=== PATIENT | female | born 1950 | race Caucasian/White ===

== ENCOUNTER 2017-08-03 15:36 | Emergency (ER) | payer MEDICARE, OTHER ==
[~2017-08-03] VITALS: Ht 170.2 cm; Wt 60.0 kg
[~2017-08-03 15:36] MED LIST: GABA100C4 PO; HYDR10TA16 PO; MELO15 PO; SERO400T3 PO; SUMA50 PO; VORT5TAB PO
[2017-08-03 15:59] VITALS: BP 150/90; PULSE 120; RESP 16; TEMP 98.6; O2SAT 95
[2017-08-03 16:36] LABS: AUTOMATED NEUTROPHIL # 7.2 TH/MM3 (1.8-7.7); BASOPHIL # 0.1 TH/MM3 (0-0.2); BASOPHIL % 0.4 % (0.0-2.0); EOSINOPHIL # 0.1 TH/MM3 (0-0.4); EOSINOPHIL % 0.8 % (0.0-4.0); HEMATOCRIT 45.7 % (35.0-46.0); HEMOGLOBIN 15.3 GM/DL (11.6-15.3); LYMPH % 40.7 % (9.0-44.0); LYMPHOCYTE # 5.7 TH/MM3 (1.0-4.8); MEAN CELL VOLUME 91.9 FL (80.0-100.0); MEAN CORPUSCULAR HEMOGLOBIN 30.7 PG (27.0-34.0); MEAN CORPUSCULAR HGB CONC 33.5 % (32.0-36.0); MEAN PLATELET VOLUME 7.7 FL (7.0-11.0); MONO % 6.3 % (0.0-8.0); MONOCYTE # 0.9 TH/MM3 (0-0.9); NEUT % 51.8 % (16.0-70.0); PLATELET COUNT 543 TH/MM3 (150-450); RED BLOOD COUNT 4.97 MIL/MM3 (4.00-5.30); RED CELL DISTRIBUTION WIDTH 14.5 % (11.6-17.2); WHITE BLOOD COUNT 13.9 TH/MM3 (4.0-11.0)
--- NOTE | 2017-08-03 16:46 | PD ---
HPI Chief Complaint: Psychiatric Symptoms Time Seen by Provider: 16:04 Travel History International Travel<30 days: No Contact w/Intl Traveler<30days: No Traveled to known affect area: No History of Present Illness HPI The patient is a 66-year-old female who presents to the emergency department as a Harding act. According to police affidavit a family member called in to state that the patient made comments in regards to suicide. The patient apparently made statements that she no longer wanted to live and was saying goodbye. The [place] patrol police met the patient had continued to cry and appeared intoxicated. She told the [place] patrol police that "no one cares "about her and wanted to be alone. They do note the patient became combative and resistant, according to police affidavit the patient appeared to be need assistance. The patient does have a history of depression with previous suicide attempt, however, will not elaborate in regards to the previous suicide attempt. She denies any suicidal ideation, states she was involved in an argument with her daughter and grandson because of her debit card being used, she states "all that I am to them is in [place] ". She does admit to drinking alcohol today. She denies a suicidal plan. She states she is no longer able to drive and has chronic laryngitis. PFSH Past Medical History Alzheimer's Disease: Yes Arthritis: Yes Asthma: No Depression: Yes Heart Rhythm Problems: No Cancer: Yes (non-Hodgkins lymphoma) Cardiovascular Problems: Yes High Cholesterol: No Chest Pain: No Congestive Heart Failure: No COPD: No Diminished Hearing: No Endocrine: No Fibromyalgia: Yes Gastrointestinal Disorders: Yes GERD: Yes Genitourinary: No Headaches: Yes Herniated Disk: Yes (x 2 neck & x 2 back) Hypertension: Yes (denies) Immune Disorder: Yes (Fibromyalgia) Implanted Vascular Access Dvce: Yes Musculoskeletal: Yes Neurologic: Yes Psychiatric: Yes Reproductive: No Respiratory: Yes Migraines: Yes Radiation Therapy: No Sleep Apnea: No Ulcer: Yes (hx) Tetanus Vaccination: Unknown Influenza Vaccination: No Tubal Ligation: Yes Past Surgical History Abdominal Surgery: No Appendectomy: Yes Body Medical Devices: breast implants Cardiac Surgery: No Ear Surgery: No Endocrine Surgery: No Eye Surgery: No Genitourinary Surgery: No Gynecologic Surgery: Yes (tubal ligation.) Oral Surgery: No Thoracic Surgery: Yes (rt. breast bx, breast augmentation.) Other Surgery: Yes (breast augmentation, COLONOSCOPY, RIGHT HIP) Social History Alcohol Use: Yes (OFTEN) Tobacco Use: Yes (1/4 PPD) Substance Use: Yes Allergies-Medications (Allergen,Severity, Reaction): Coded Allergies: No Known Allergies (Verified , 08/04/14) Reported Meds & Prescriptions Reported Meds & Active Scripts Active Reported Wellbutrin Xl 24 HR (Bupropion HCl) 150 Mg Tab 150 Mg PO DAILY Lisinopril 2.5 Mg Tab 2.5 Mg PO DAILY Review of Systems ROS Limitations: Intoxication Except as stated in HPI: all other systems reviewed are Neg General / Constitutional: No: Fever Cardiovascular: No: Chest Pain or Discomfort Respiratory: No: Shortness of Breath Gastrointestinal: No: Nausea, Vomiting Psychiatric: Positive: Depression, Substance Abuse (alcohol use), No: Suicidal Ideations, Homicidal Ideation Physical Exam Narrative GENERAL: Awake, alert, 66-year-old female who initially does not want to answer questions. SKIN: Focused skin assessment warm/dry. HEAD: Atraumatic. Normocephalic. EYES: Pupils equal and round. Mild injection bilaterally. ENT: No nasal bleeding or discharge. Breath smells of alcohol. NECK: Trachea midline. No JVD. CARDIOVASCULAR: Regular rate and rhythm. No murmur appreciated. RESPIRATORY: No accessory muscle use. Clear to auscultation. Breath sounds equal bilaterally. MUSCULOSKELETAL: No obvious deformities. No clubbing. No cyanosis. No edema. NEUROLOGICAL: Awake and alert. No obvious cranial nerve deficits. Motor grossly within normal limits. Normal speech. Nonfocal. PSYCHIATRIC: Tearful, demanding of staff's attention. Data Data Last Documented VS Vital Signs Date Time Temp Pulse Resp B/P (MAP) Pulse Ox O2 Delivery O2 Flow Rate FiO2 08/04/17 06:31 98.2 97 18 180/106 (130) 98 Room Air Orders Orders Complete Blood Count With Diff (08/03/17 15:58) Comprehensive Metabolic Panel (08/03/17 15:58) Thyroid Stimulating Hormone (08/03/17 15:58) Psych Screen (08/03/17 15:58) Drug Screen, Random Urine (08/03/17 15:58) Alcohol (Ethanol) (08/03/17 15:58) Diet Regular Basic (08/04/17 Breakfast) Lisinopril (Prinivil) (08/04/17 06:30) Labs Laboratory Tests Test 08/03/17 15:47 08/03/17 15:55 Urine Opiates Screen NEG Urine Barbiturates Screen NEG Urine Amphetamines Screen NEG Urine Benzodiazepines Screen NEG Urine Cocaine Screen NEG Urine Cannabinoids Screen POS White Blood Count 13.9 TH/MM3 Red Blood Count 4.97 MIL/MM3 Hemoglobin 15.3 GM/DL Hematocrit 45.7 % Mean Corpuscular Volume 91.9 FL Mean Corpuscular Hemoglobin 30.7 PG Mean Corpuscular Hemoglobin Concent 33.5 % Red Cell Distribution Width 14.5 % Platelet Count 543 TH/MM3 Mean Platelet Volume 7.7 FL Neutrophils (%) (Auto) 51.8 % Lymphocytes (%) (Auto) 40.7 % Monocytes (%) (Auto) 6.3 % Eosinophils (%) (Auto) 0.8 % Basophils (%) (Auto) 0.4 % Neutrophils # (Auto) 7.2 TH/MM3 Lymphocytes # (Auto) 5.7 TH/MM3 Monocytes # (Auto) 0.9 TH/MM3 Eosinophils # (Auto) 0.1 TH/MM3 Basophils # (Auto) 0.1 TH/MM3 CBC Comment AUTO DIFF Differential Comment AUTO DIFF CONFIRMED Blood Urea Nitrogen 11 MG/DL Creatinine 0.93 MG/DL Random Glucose 134 MG/DL Total Protein 7.8 GM/DL Albumin 3.7 GM/DL Calcium Level 9.5 MG/DL Alkaline Phosphatase 109 U/L Aspartate Amino Transf (AST/SGOT) 7 U/L Alanine Aminotransferase (ALT/SGPT) 8 U/L Total Bilirubin 0.2 MG/DL Sodium Level 145 MEQ/L Potassium Level 3.6 MEQ/L Chloride Level 110 MEQ/L Carbon Dioxide Level 20.0 MEQ/L Anion Gap 15 MEQ/L Estimat Glomerular Filtration Rate 60 ML/MIN Thyroid Stimulating Hormone 3rd Gen 1.030 uIU/ML Ethyl Alcohol Level 61 MG/DL [facility] Medical Decision Making Medical Screen Exam Complete: Yes Emergency Medical Condition: Yes Medical Record Reviewed: Yes Differential Diagnosis Differential diagnosis includes suicidal ideation, depressive disorder, bipolar affective disorder, substance induced mood disorder, stress reaction, adjustment reaction, schizoaffective disorder. Narrative Course Labs are drawn and sent. Psychiatric evaluation was ordered. The patient was signed out to the oncoming physician at 5 PM and laboratory evaluation pending. Diagnosis Primary Impression: Substance induced mood disorder Condition: Stable Crump,[place] Z. MD Aug 03, 2017 16:46
[2017-08-03 16:52] LABS: ALBUMIN 3.7 GM/DL (3.4-5.0); ALT (GPT) 8 U/L (10-53); AST (GOT) 7 U/L (15-37); BLOOD UREA NITROGEN 11 MG/DL (7-18); CALCIUM 9.5 MG/DL (8.5-10.1); CHLORIDE 110 MEQ/L (98-107); CREATININE 0.93 MG/DL (0.50-1.00); GLOMERULAR FILTRATION RATE 60 ML/MIN (>89); GLUCOSE,RANDOM 134 MG/DL (74-106); SODIUM (NA) 145 MEQ/L (136-145)
[2017-08-03 17:02] LABS: ALKALINE PHOSPHATASE 109 U/L (45-117); TOTAL BILIRUBIN ADULT 0.2 MG/DL (0.2-1.0); TOTAL PROTEIN 7.8 GM/DL (6.4-8.2)
--- NOTE | 2017-08-03 19:33 | PD ---
Physical Exam Narrative Patient was seen by ED physician and signed out to me. Data Data Last Documented VS Vital Signs Date Time Temp Pulse Resp B/P (MAP) Pulse Ox O2 Delivery O2 Flow Rate FiO2 08/03/17 15:59 98.6 120 16 150/90 (110) 95 Orders Orders Complete Blood Count With Diff (08/03/17 15:58) Comprehensive Metabolic Panel (08/03/17 15:58) Thyroid Stimulating Hormone (08/03/17 15:58) Psych Screen (08/03/17 15:58) Drug Screen, Random Urine (08/03/17 15:58) Alcohol (Ethanol) (08/03/17 15:58) Labs Laboratory Tests Test 08/03/17 15:47 08/03/17 15:55 Urine Opiates Screen NEG Urine Barbiturates Screen NEG Urine Amphetamines Screen NEG Urine Benzodiazepines Screen NEG Urine Cocaine Screen NEG Urine Cannabinoids Screen POS White Blood Count 13.9 TH/MM3 Red Blood Count 4.97 MIL/MM3 Hemoglobin 15.3 GM/DL Hematocrit 45.7 % Mean Corpuscular Volume 91.9 FL Mean Corpuscular Hemoglobin 30.7 PG Mean Corpuscular Hemoglobin Concent 33.5 % Red Cell Distribution Width 14.5 % Platelet Count 543 TH/MM3 Mean Platelet Volume 7.7 FL Neutrophils (%) (Auto) 51.8 % Lymphocytes (%) (Auto) 40.7 % Monocytes (%) (Auto) 6.3 % Eosinophils (%) (Auto) 0.8 % Basophils (%) (Auto) 0.4 % Neutrophils # (Auto) 7.2 TH/MM3 Lymphocytes # (Auto) 5.7 TH/MM3 Monocytes # (Auto) 0.9 TH/MM3 Eosinophils # (Auto) 0.1 TH/MM3 Basophils # (Auto) 0.1 TH/MM3 CBC Comment AUTO DIFF Differential Comment AUTO DIFF CONFIRMED Blood Urea Nitrogen 11 MG/DL Creatinine 0.93 MG/DL Random Glucose 134 MG/DL Total Protein 7.8 GM/DL Albumin 3.7 GM/DL Calcium Level 9.5 MG/DL Alkaline Phosphatase 109 U/L Aspartate Amino Transf (AST/SGOT) 7 U/L Alanine Aminotransferase (ALT/SGPT) 8 U/L Total Bilirubin 0.2 MG/DL Sodium Level 145 MEQ/L Potassium Level 3.6 MEQ/L Chloride Level 110 MEQ/L Carbon Dioxide Level 20.0 MEQ/L Anion Gap 15 MEQ/L Estimat Glomerular Filtration Rate 60 ML/MIN Thyroid Stimulating Hormone 3rd Gen 1.030 uIU/ML Ethyl Alcohol Level 61 MG/DL MDM Supervised Visit with GLADYS: No Interpretation(s) CBC WBC 13.9. Platelet 543. Normal differential. Bicarb 20.0. GFR 60. Alcohol 61. Urine drug screen positive for cannabis. Narrative Course 1933 PM. Patient is medically cleared for psychiatric evaluation and disposition. Diagnosis Primary Impression: Substance induced mood disorder Condition: Stable Chaim Elizabeth MD Aug 03, 2017 19:33
[2017-08-03] MEDS ORDERED: BUPR150XL PO (19:40)
[2017-08-03] MEDS ORDERED: LISI2.5T3 PO (19:40)
[2017-08-03 22:24] VITALS: BP 176/86; PULSE 94; RESP 22; TEMP 98.8; O2SAT 97
[2017-08-04 02:13] VITALS: BP 191/93; PULSE 81; RESP 18; TEMP 98.2; O2SAT 99
[2017-08-04] MEDS ORDERED: LISINOPRIL 10 MG TAB PO ONE (06:30)
[2017-08-04 06:31] VITALS: BP 180/106; PULSE 97; RESP 18; TEMP 98.2; O2SAT 98
[2017-08-04 10:00] VITALS: BP 138/100; PULSE 86; RESP 20
[2017-08-04 10:50] VITALS: BP 171/94; PULSE 101; RESP 20; O2SAT 98
--- NOTE | 2017-08-04 11:24 | PD ---
Physical Exam Date Seen by Provider: Aug 04, 2017 Time Seen by Provider: 11:22 Narrative 66-year-old female previously medically cleared for psychiatric evaluation has been seen and evaluated by psychiatric staff. Patient is deemed currently psychiatrically stable for discharge at this time. Patient remains medically stable at this time. Follow-up is based on psychiatric note. Patient should continue her blood pressure medications as previously prescribed. Data Data Last Documented VS Vital Signs Date Time Temp Pulse Resp B/P (MAP) Pulse Ox O2 Delivery O2 Flow Rate FiO2 08/04/17 10:50 101 20 171/94 (119) 98 Room Air 08/04/17 06:31 98.2 Orders Orders Complete Blood Count With Diff (08/03/17 15:58) Comprehensive Metabolic Panel (08/03/17 15:58) Thyroid Stimulating Hormone (08/03/17 15:58) Psych Screen (08/03/17 15:58) Drug Screen, Random Urine (08/03/17 15:58) Alcohol (Ethanol) (08/03/17 15:58) Diet Regular Basic (08/04/17 Breakfast) Lisinopril (Prinivil) (08/04/17 06:30) Diet Regular Basic (08/04/17 Lunch) Labs Laboratory Tests Test 08/03/17 15:47 08/03/17 15:55 Urine Opiates Screen NEG Urine Barbiturates Screen NEG Urine Amphetamines Screen NEG Urine Benzodiazepines Screen NEG Urine Cocaine Screen NEG Urine Cannabinoids Screen POS White Blood Count 13.9 TH/MM3 Red Blood Count 4.97 MIL/MM3 Hemoglobin 15.3 GM/DL Hematocrit 45.7 % Mean Corpuscular Volume 91.9 FL Mean Corpuscular Hemoglobin 30.7 PG Mean Corpuscular Hemoglobin Concent 33.5 % Red Cell Distribution Width 14.5 % Platelet Count 543 TH/MM3 Mean Platelet Volume 7.7 FL Neutrophils (%) (Auto) 51.8 % Lymphocytes (%) (Auto) 40.7 % Monocytes (%) (Auto) 6.3 % Eosinophils (%) (Auto) 0.8 % Basophils (%) (Auto) 0.4 % Neutrophils # (Auto) 7.2 TH/MM3 Lymphocytes # (Auto) 5.7 TH/MM3 Monocytes # (Auto) 0.9 TH/MM3 Eosinophils # (Auto) 0.1 TH/MM3 Basophils # (Auto) 0.1 TH/MM3 CBC Comment AUTO DIFF Differential Comment AUTO DIFF CONFIRMED Blood Urea Nitrogen 11 MG/DL Creatinine 0.93 MG/DL Random Glucose 134 MG/DL Total Protein 7.8 GM/DL Albumin 3.7 GM/DL Calcium Level 9.5 MG/DL Alkaline Phosphatase 109 U/L Aspartate Amino Transf (AST/SGOT) 7 U/L Alanine Aminotransferase (ALT/SGPT) 8 U/L Total Bilirubin 0.2 MG/DL Sodium Level 145 MEQ/L Potassium Level 3.6 MEQ/L Chloride Level 110 MEQ/L Carbon Dioxide Level 20.0 MEQ/L Anion Gap 15 MEQ/L Estimat Glomerular Filtration Rate 60 ML/MIN Thyroid Stimulating Hormone 3rd Gen 1.030 uIU/ML Ethyl Alcohol Level 61 MG/DL [facility] Medical Record Reviewed: Yes Supervised Visit with GLADYS: Yes Narrative Course 66-year-old female previously medically cleared for psychiatric evaluation has been seen and evaluated by psychiatric staff. Patient is deemed currently psychiatrically stable for discharge at this time. Patient remains medically stable at this time. Follow-up is based on psychiatric note. Patient should continue her blood pressure medications as previously prescribed. Diagnosis Primary Impression: Substance induced mood disorder Patient Instructions: General Instructions Med/Other Pt SpecificInfo: No Change to Meds Disposition: 01 DISCHARGE HOME Condition: Stable Chucky Billy Aug 04, 2017 11:24
--- NOTE | 2017-08-04 11:33 | PD ---
History of Present Illness Chief Complaint: Psychiatric Symptoms Time Seen by Provider: 11:20 Travel History International Travel<30 Days: No Contact w/Intl Traveler<30days: No Known affected area: No Legal Status Legal Status: Harding Act Harding Act Signed By: Naheed Khan History of Present Illness: History of Present Illness HPI The patient is a 66-year-old, female with reported history of depression who presents to the emergency department as a Harding act initiated by law enforcement. According to police affidavit a family member called in to state that the patient made comments in regards to suicide. The patient apparently made statements that she no longer wanted to live and was saying goodbye. When the aboriginal liaison officer met the patient she continued to cry and appeared intoxicated. She told the aboriginal liaison officer that "no one cares "about her and wanted to be alone. They do note the patient became combative and resistant, according to police affidavit the patient appeared to be need assistance. The patient was monitored in secure environment and presented no behavioral concerns and no suicidality. EMR reviewed. One previous admission to [facility] psychiatry in 2015 for treatment of depression and suicide attempt. Current toxicology is positive for cannabinoids. Blood alcohol level on admission is 61. Patient is seen in J pod. She is alert, oriented female in hospital [facility] with fair hygiene and grooming. She is histrionic. Speech is clear and logical. She is focused on somatic complaints regarding back pain and leg pain and elbow pain. There is no evidence of any psychosis, no rufus or hypomania. She denies any hallucinations and does not appear internally preoccupied. She admits to feeling depressed but states that she felt like that for most of her life. She denies any suicidal or homicidal ideation, intent or plan. She goes on to say that she is not sure why she was brought here. Does admit that her brother called the police for a wellness check but she denies that she ever said anything about killing herself. She does admit to saying "something to the effect of being tired of living the way I am living". She continues to deny that that was a suicidal statement. Patient does share that she is experiencing multiple family stressors including recent knowledge that one of her grandsons used her debit card and that her granddaughter doesn't want her to see her great grandchildren. Patient denies that she is a daily drinker although does admit she had a few drinks prior to being placed under the Harding act. Remainder of psychiatric review of systems is negative. PFSH Past Medical History Alzheimer's Disease: Yes Arthritis: Yes Asthma: No Depression: Yes Heart Rhythm Problems: No Cancer: Yes (non-Hodgkins lymphoma) Cardiovascular Problems: Yes High Cholesterol: No Chest Pain: No Congestive Heart Failure: No COPD: No Diminished Hearing: No Endocrine: No Fibromyalgia: Yes Gastrointestinal Disorders: Yes GERD: Yes Genitourinary: No Headaches: Yes Herniated Disk: Yes (x 2 neck & x 2 back) Hypertension: Yes (denies) Immune Disorder: Yes (Fibromyalgia) Implanted Vascular Access Dvce: Yes Musculoskeletal: Yes Neurologic: Yes Psychiatric: Yes Reproductive: No Respiratory: Yes Migraines: Yes Radiation Therapy: No Sleep Apnea: No Ulcer: Yes (hx) Tetanus Vaccination: Unknown Influenza Vaccination: No Tubal Ligation: Yes Past Surgical History Abdominal Surgery: No Appendectomy: Yes Body Medical Devices: breast implants Cardiac Surgery: No Ear Surgery: No Endocrine Surgery: No Eye Surgery: No Genitourinary Surgery: No Gynecologic Surgery: Yes (tubal ligation.) Oral Surgery: No Thoracic Surgery: Yes (rt. breast bx, breast augmentation.) Other Surgery: Yes (breast augmentation, COLONOSCOPY, RIGHT HIP) Psychiatric History Psychiatric History Hx Psychiatric Treatment: HX: MAJOR DEPRESSION PATIENT WAS ADMITTED TO [facility] ON JULY OF 2014 FOR SUICIDE ATTEMPT. Followed outpatient by [facility] in the past. Currently not taking any psychiatric medications. One previous suicide attempt in 2014 History of Inpatient Treatment: Yes Guns or firearms in home: No Social History female. Lives by herself. Unemployed. Hx Alcohol Use: Yes (OFTEN) Hx Tobacco Use: Yes (1/4 PPD) Hx Substance Use: Yes Substance Use Type: Alcohol, Marijuana Hx of Substance Use Treatment: No Family Psychiatric History Negative Allergies-Medications (Allergen,Severity, Reaction): Coded Allergies: No Known Allergies (Verified , 08/04/14) Reported Meds & Prescriptions Reported Meds & Active Scripts Active Reported Wellbutrin Xl 24 HR (Bupropion HCl) 150 Mg Tab 150 Mg PO DAILY Lisinopril 2.5 Mg Tab 2.5 Mg PO DAILY Review of Systems Musculoskeletal: COMPLAINS OF: Joint pain, Muscle aches, Back pain Psychiatric: COMPLAINS OF: Depression Except as stated in HPI: all other systems reviewed are Neg Mental Status Examination Appearance: Appropriate (in hospital attire) Consciousness: Alert Orientation: x4 Motor Activity: Normal gait Speech: Unremarkable Language: Adequate Fund of Knowledge: Adequate Attention and Concentration: Adequate Memory: Unremarkable Mood: Angry Affect: Appropriate Thought Process & Associations: Intact, Logical, Goal directed Thought Content: Other (somatically focused) Hallucination Type: None Delusion Type: None Suicidal Ideation: No Suicidal Plan: No Suicidal Intention: No Homicidal Ideation: No Homicidal Plan: No Homicidal Intention: No Insight: Fair Judgment: Impulsive MDM Medical Decision Making Medical Record Reviewed: Yes Assessment/Plan 66-year-old female with past history of depression who while in context of an argument with family members and while under the influence of alcohol made statements alluding to having suicidal feelings. The patient did not make any attempt at harming herself. The patient was monitored in secure environment and presented no suicidality. She does report that she has multiple family stressors as well as having persistent pain. She is denying any suicidal ideation, intent or plan. She is future oriented and wants to be discharge in order to go home and take care of her cat. The patient at this time is not under psychiatric care and does not want to pursue that since she states that previous treatment was not effective. At this time the patient does not meet criteria for Harding act. She is provided psychoeducation. The Harding act is lifted. Psychiatrically clear for discharge from ED Orders Orders Complete Blood Count With Diff (08/03/17 15:58) Comprehensive Metabolic Panel (08/03/17 15:58) Thyroid Stimulating Hormone (08/03/17 15:58) Psych Screen (08/03/17 15:58) Drug Screen, Random Urine (08/03/17 15:58) Alcohol (Ethanol) (08/03/17 15:58) Diet Regular Basic (08/04/17 Breakfast) Lisinopril (Prinivil) (08/04/17 06:30) Diet Regular Basic (08/04/17 Lunch) Ed Discharge Order (08/04/17 11:25) Results Vital Signs Date Time Temp Pulse Resp B/P (MAP) Pulse Ox O2 Delivery O2 Flow Rate FiO2 08/04/17 10:50 101 20 171/94 (119) 98 Room Air 08/04/17 10:00 86 20 138/100 (113) 08/04/17 06:31 98.2 97 18 180/106 (130) 98 Room Air 08/04/17 02:13 98.2 81 18 191/93 (125) 99 Room Air 08/03/17 22:24 98.8 94 22 176/86 (116) 97 Room Air 08/03/17 15:59 98.6 120 16 150/90 (110) 95 Laboratory Tests Test 08/03/17 15:47 08/03/17 15:55 Urine Opiates Screen NEG Urine Barbiturates Screen NEG Urine Amphetamines Screen NEG Urine Benzodiazepines Screen NEG Urine Cocaine Screen NEG Urine Cannabinoids Screen POS White Blood Count 13.9 Red Blood Count 4.97 Hemoglobin 15.3 Hematocrit 45.7 Mean Corpuscular Volume 91.9 Mean Corpuscular Hemoglobin 30.7 Mean Corpuscular Hemoglobin Concent 33.5 Red Cell Distribution Width 14.5 Platelet Count 543 Mean Platelet Volume 7.7 Neutrophils (%) (Auto) 51.8 Lymphocytes (%) (Auto) 40.7 Monocytes (%) (Auto) 6.3 Eosinophils (%) (Auto) 0.8 Basophils (%) (Auto) 0.4 Neutrophils # (Auto) 7.2 Lymphocytes # (Auto) 5.7 Monocytes # (Auto) 0.9 Eosinophils # (Auto) 0.1 Basophils # (Auto) 0.1 CBC Comment AUTO DIFF Differential Comment AUTO DIFF CONFIRMED Blood Urea Nitrogen 11 Creatinine 0.93 Random Glucose 134 Total Protein 7.8 Albumin 3.7 Calcium Level 9.5 Alkaline Phosphatase 109 Aspartate Amino Transf (AST/SGOT) 7 Alanine Aminotransferase (ALT/SGPT) 8 Total Bilirubin 0.2 Sodium Level 145 Potassium Level 3.6 Chloride Level 110 Carbon Dioxide Level 20.0 Anion Gap 15 Estimat Glomerular Filtration Rate 60 Thyroid Stimulating Hormone 3rd Gen 1.030 Ethyl Alcohol Level 61 Diagnosis Primary Impression: Substance induced mood disorder Psychiatrically Cleared: Yes Patient Instructions: General Instructions Med/ Other Pt Specific Info: No Meds Exist/No RX given Disposition: 01 DISCHARGE HOME Condition: Stable Ida FernandezP Aug 04, 2017 11:33
== END 2017-08-04 13:10 | disposition home or self-care (01) ==
LOC: NEPD 15:36 → NEPJ 08-04 13:10
DX: F19.94 Other psychoactive substance use, unspecified with psychoactive substance-induced mood disorder (principal); F17.200 Nicotine dependence, unspecified, uncomplicated; F32.9 Major depressive disorder, single episode, unspecified; Z79.899 Other long term (current) drug therapy
CPT/HCPCS: 80053; 80307; 84443; 85025; 99284